=== PATIENT | female | born 1990 | race Hispanic/Latino ===

== ENCOUNTER → 2023-05-06 | Outpatient (CLI) | payer BC ==
[~2023-05-06] MED LIST: GADOTERATE MEGLUMINE 10 MMOL/20 ML VIAL IV ONE
== END | disposition home or self-care (01) ==
LOC: RAH 07:43
PROVIDERS: ATTEND Family Medicine Sports Medicine
DX: G37.9 Demyelinating disease of central nervous system, unspecified (principal); G37.3 Acute transverse myelitis in demyelinating disease of central nervous system
CPT/HCPCS: 70553; A9575